=== PATIENT | female | born 1950 | race Caucasian/White ===

== ENCOUNTER → 2020-09-19 | Outpatient (CLI) | payer MEDICARE ==
[2014-12-29 08:58] VITALS: BP 86/59
[~2020-09-19] MED LIST: ASPI81TA50 PO; BACL10TA PO; CHOL200044 PO; FURO-69 PO; GADOTERATE 5 MMOL/10ML VIAL. IVP ONE; GLAT40SY SQ; GLUC1CAP48 PO; LEVO150T PO; METH5TAB4 PO; OMEP20CA16 PO
--- NOTE | 2020-09-19 16:19 | KCIC ---
MRI BRAIN WO+W Date: 09/19/2020 11:40 AM Indication: MS. New baseline for MS. Dx around age 31. BUE and BLE numbness. Comparison: None. Technique: Multiplanar multisequence MRI of the brain was performed with and without intravenous cont rast using the standard protocol. 10 cc Clariscan contrast was administered intravenously during the exam. Findings: There are approximately 15-20 foci of abnormal T2/FLAIR hyperintense signal in the periventricular, s ubcortical, and pericallosal white matter. None of these foci demonstrate confluent T1 hypointensity. No advanced for age cerebral atrophy. No postcontrast enhancement or restricted diffusion. No acute infarct. No acute or chronic hemorrhage. The ventricles are normal in size and configuration without hydrocephalus. Patchy ill-defined T2 hyperintensity in the clement, likely chronic small vessel ischemic disease. Chronic lacunar infarct involving the left caudate head and anterior limb internal capsule. The scalp and calvarium are normal. The pituitary and sella are normal. No Chiari malformation. Mild incompletely characterized degenerative spondylosis of the visualized upper cervical spine. The visualized orbits and globes are normal. The visualized paranasal sinuses are clear. The mastoid air cells are clear. Normal flow voids within the vertebral, basilar, and internal carotid arteries indicating patency. IMPRESSION: 1. No acute infarct or hemorrhage. No mass or abnormal enhancement. 2. Approximately 15-20 foci of abnormal signal in the deep white matter, nonspecific but likely a com bination of chronic small vessel ischemic disease and chronic demyelinating plaques (given history of multiple sclerosis). No evidence of active demyelination. 3. Left basal ganglia chronic lacunar infarct. Electronically signed by: Minh Watters MD (09/19/2020 4:16 PM) [id number]
== END ==
LOC: KCIC MRI 10:42
PROVIDERS: ATTEND Psychiatry & Neurology Neurology with Special Qualifications in Child Neurology
DX: I63.81 Other cerebral infarction due to occlusion or stenosis of small artery (principal); G35 Multiple sclerosis
CPT/HCPCS: 70553; 82565; A9575